=== PATIENT | female | born 1955 | race African-American/Black ===

== ENCOUNTER 2021-01-29 17:30 | Outpatient (CLI) | payer OTHER | END 2021-01-29 17:31 | disposition home or self-care (01) | LOC: SLEEPLAB 17:30 | PROVIDERS: ATTEND Obstetrics & Gynecology | DX: G47.33 Obstructive sleep apnea (adult) (pediatric) (principal); R06.83 Snoring; I10 Essential (primary) hypertension | CPT/HCPCS: 95806 ==